=== PATIENT | male | born 1980 | race African-American/Black ===

== ENCOUNTER → 2024-09-04 11:35 | Outpatient (CLI) | payer OTHER, SELFPAY ==
--- NOTE | 2024-09-04 11:38 | DI.MRI.S_ITS ---
PROCEDURE: MR FOOT RT WO CON INDICATIONS: Hallux limitus of right foot TECHNIQUE: Multiphasic, multisequence MRI of the forefoot was performed, without intravenous contrast administration. COMPARISON: [facility], CR, XR FOOT 3+ VIEWS RIGHT, 07/05/2024, 8:49. FINDINGS: Image quality: Excellent. Bones and joints: Moderate hallux valgus is seen. Moderate 1st MTP joint osteoarthritic changes are seen with joint space narrowing, subchondral sclerosis and small dorsal marginal osteophyte formation, concerning for mild hallux limitus. No acute fracture or dislocation. No suspicious intraosseous lesions. No metatarsal stress fractures. Soft tissues: The visualized plantar foot muscles demonstrate normal signal and bulk. Thickened flexor hallucis longus tendon at the level of 1st metatarsal head is seen suggestive of mild tendinosis. There is also suggestion of ruptured medial sagittal band of 1st metatarsal head with lateral subluxation of extensor tendon of great toe at the level of 1st metatarsal head. Rest of the flexor and extensor tendons appear intact. The distal insertions of the peroneus brevis and longus tendons appear intact. The principal Lisfranc ligament appears intact. Markedly thickened medial collateral ligament of 1st MTP joint suggestive of ligament sprain. The lateral collateral ligament is intact. Sagittal views shows no gross plantar plate tear. IMPRESSION: 1. Moderate hallux valgus and moderate 1st MTP joint osteoarthritis. Small dorsal marginal osteophyte formation, which may represent mild hallux limitus. No acute fracture or dislocation. No metatarsal stress fractures. 2. Moderate sprain of medial collateral ligament of 1st MTP joint. Suggestion of torn medial sagittal band of 1st MTP joint extensor russell with laterally subluxed extensor tendon of great toe at the level of 1st metatarsal head. Suggestion of tendinosis involving flexor hallucis longus tendon at the level of 1st MTP joint. Dictated by: Prieto Ivey M.D. on 09/05/2024 at 15:19 Approved by: Prieto Ivey M.D. on 09/05/2024 at 15:25
== END ==
PROVIDERS: Referring Provider Podiatrist; Visit Provider Podiatrist
DX: M20.5X1 Other deformities of toe(s) (acquired), right foot (principal); M20.11 Hallux valgus (acquired), right foot; M19.071 Primary osteoarthritis, right ankle and foot; S93.691A Other sprain of right foot, initial encounter
CPT/HCPCS: 73718